=== PATIENT | female | born 1960 | race Two or more races ===

== ENCOUNTER 2018-10-18 12:11 | Inpatient (IN) | payer OTHER ==
[~2018-10-18] VITALS: Ht 149.9 cm; Wt 76.2 kg
[2018-10-18] MEDS ORDERED: FORTAMET1000 MG PO (12:59)
[2018-10-18] MEDS ORDERED: NORVASC5 MG (13:38)
[2018-10-18] MEDS ORDERED: GLIPIZIDE ER10 MG PO (13:38)
[2018-10-18] MEDS ORDERED: NEURONTIN600 MG PO (13:39)
[2018-10-18] MEDS ORDERED: CYMBALTA30 MG (13:39)
[2018-10-18] MEDS ORDERED: TRAMADOL HCL50 MG PO (15:05)
[2018-10-18] MEDS ORDERED: AMITRIPTYLINE H10 MG PO (15:06)
[2018-10-23] MEDS ORDERED: XARELTO10 MG PO (12:31)
[2018-10-23] MEDS ORDERED: Septra Ds Tablet PO (12:31)
[2018-10-23] MEDS ORDERED: INTEGRA PLUS C1 EACH PO (12:31)
[2018-10-23] MEDS ORDERED: AMLODIPINE BESYL5 MG PO (12:32)
[2018-10-23] MEDS ORDERED: OXYC1TAB9 PO (12:32)
[2018-10-23] MEDS ORDERED: AMITRIPTYLINE H10 MG PO (12:32)
[2018-10-23] MEDS ORDERED: FORTAMET1000 MG PO (12:33)
[2018-10-23] MEDS ORDERED: GLIPIZIDE ER10 MG PO (12:33)
[2018-10-23] MEDS ORDERED: SENOKOT-S TABL1 EACH PO (12:33)
== END 2018-10-23 18:21 | DRG 470 ==
LOC: O/R 10-21 08:45 → SURH 10-21 08:45
PROVIDERS: ADMIT Orthopaedic Surgery Sports Medicine
PROC: 0SRB0JZ Replacement of Left Hip Joint with Synthetic Substitute, Open Approach (ICD-10-PCS; principal; 2018-10-21 17:30)
DX: M16.12 Unilateral primary osteoarthritis, left hip (principal); I10 Essential (primary) hypertension; E11.9 Type 2 diabetes mellitus without complications

== ENCOUNTER 2018-11-02 12:31 | Emergency (ER) | payer OTHER ==
[~2018-11-02] VITALS: Ht 144.8 cm; Wt 76.2 kg
[~2018-11-02 12:31] MED LIST: AMITRIPTYLINE H10 MG PO; AMLODIPINE BESYL5 MG PO; CYMBALTA30 MG; FORTAMET1000 MG PO; GLIPIZIDE ER10 MG PO; INTEGRA PLUS C1 EACH PO; NEURONTIN600 MG PO; NORVASC5 MG; OXYC1TAB9 PO; SENOKOT-S TABL1 EACH PO; Septra Ds Tablet PO; TRAMADOL HCL50 MG PO; XARELTO10 MG PO
== END 2018-11-02 14:47 | disposition home or self-care (01) ==
LOC: ER 12:31
DX: R23.3 Spontaneous ecchymoses (principal)

== ENCOUNTER 2022-04-27 08:45 | Inpatient (IN) | payer OTHER ==
[~2022-04-27] VITALS: Ht 149.9 cm; Wt 72.6 kg
[2022-05-02] MEDS ORDERED: METOPROLOL SUCC50 MG (11:16)
[2022-05-02] MEDS ORDERED: FAMOTIDINE40 MG (11:16)
[2022-05-02] MEDS ORDERED: PRAVASTATIN SOD20 MG (11:17)
[2022-05-02] MEDS ORDERED: FENOFIBRATE160 MG (11:17)
[2022-05-02] MEDS ORDERED: CLONAZEPAM0.5 MG (11:17)
[2022-05-02] MEDS ORDERED: PANTOPRAZOLE SO40 MG (11:17)
[2022-05-03] MEDS ORDERED: CIPRO500 MG PO (06:36)
[2022-05-03] MEDS ORDERED: XARELTO10 MG PO (06:36)
[2022-05-03] MEDS ORDERED: OXYC1TAB9 PO (06:36)
[2022-05-03] MEDS ORDERED: INTEGRA PLUS C1 EACH PO (06:36)
== END 2022-05-03 10:08 | DRG 470 ==
LOC: O/R 05-01 09:41 → SURG 05-01 10:15 → SURH 05-01 15:48 → SURG 05-01 23:30 → SURH 05-03 10:08
PROVIDERS: ADMIT Orthopaedic Surgery Sports Medicine; ATTEND Orthopaedic Surgery Sports Medicine
PROC: 0SR90JA Replacement of Right Hip Joint with Synthetic Substitute, Uncemented, Open Approach (ICD-10-PCS; principal; 2022-05-01 23:30)
DX: M16.11 Unilateral primary osteoarthritis, right hip (principal); I10 Essential (primary) hypertension; Z96.641 Presence of right artificial hip joint; E11.9 Type 2 diabetes mellitus without complications; Z20.822 Contact with and (suspected) exposure to COVID-19

== ENCOUNTER 2023-10-18 09:38 | Emergency (ER) | payer OTHER ==
[~2023-10-18] VITALS: Ht 149.9 cm; Wt 72.1 kg
[~2023-10-18 09:38] MED LIST changes: +CIPRO500 MG PO; +CLONAZEPAM0.5 MG; +FAMOTIDINE40 MG; +FENOFIBRATE160 MG; +METOPROLOL SUCC50 MG; +PANTOPRAZOLE SO40 MG; +PRAVASTATIN SOD20 MG
[2023-10-18] MEDS ORDERED: ZESTRIL10 M1 (10:08)
[2023-10-18] MEDS ORDERED: OMEGA-3 ACID ETH1 GM PO (10:09)
[2023-10-18] MEDS ORDERED: ROSUVASTATIN CA20 MG PO (10:09)
[2023-10-18] MEDS ORDERED: JANUMET XR 1001 EACH PO (10:09)
[2023-10-18 10:48] LABS: HEMATOCRIT 35.9 % (36.0-45.00); HEMOGLOBIN 11.8 g/dL (12.0-15.00); MEAN CORPUSCULAR HGB CONC 32.8 g/dl (32.0-36.0); PLATELET COUNT 222 K/uL (150-450); RED BLOOD COUNT 4.54 M/uL (4.00-6.00); RED CELL DISTRIBUTION WIDTH 13.9 % (11.5-14.5)
[2023-10-18 11:11] LABS: CALCIUM 8.9 mg/dL (8.5-10.1); CREATININE SERUM 0.89 mg/dL (0.55-1.02); GFR 63.85; POTASSIUM 3.55 mEq/L (3.5-5.1)
[2023-10-18 14:13] LABS: PH,URINE 6.5 (5.0-8.0); URINE APPEARANCE Clear; URINE BACTERIA 11.3 uL (0.0-1933); URINE BILIRRUBIN Negative (NEGATIVE); URINE BLOOD Negative; URINE COLOR Yellow; URINE EPITHELIAL CELLS 1.9 uL (0.0-38.8); URINE GLUCOSE Negative (NEGATIVE); URINE LEUKOCYTE Negative; URINE NITRATE Negative; URINE PROTEIN Negative (NEGATIVE); URINE UROBILINOGEN 0.2 E.U./dl; URINE WBC 4.1 uL (0.0-23.2)
[2023-10-18 14:15] LABS: URINE RBC 0.1 uL (0.0-20.8)
== END 2023-10-18 16:10 | disposition home or self-care (01) ==
LOC: ER 09:38
PROVIDERS: Emergency Medicine
DX: R10.9 Unspecified abdominal pain (principal); E78.00 Pure hypercholesterolemia, unspecified; I10 Essential (primary) hypertension; E11.9 Type 2 diabetes mellitus without complications; Z79.84 Long term (current) use of oral hypoglycemic drugs
CPT/HCPCS: 36415; 74177; 96365; 96372; 99284; J1885; J3490; Q9965